=== PATIENT | female | born 1970 | race Caucasian/White ===

== ENCOUNTER → 2018-09-16 | Outpatient (CLI) | payer OTHER ==
[~2018-09-16] MED LIST: BUTA-234; BUTA1TAB55 PO; CYAN50003 PO; CYCL10TA45 PO; DIAZ-345; ERGO50006 PO; FLUO40CA PO; HCTZ12.5T PO; HYDR-3454 PO; HYDR25TA4 PO; IBUP-1780 PO; LEVO200T6 PO; LEVO25TA5 PO; LEVO500T2 PO; MELO-195 PO; METH10TA2 PO; METH4TAB PO; METH500T PO; PHEN37.555 PO; POTA10TA10 PO; TAPE50TA2 PO
--- NOTE | 2018-09-16 12:39 | Diagnostic Imaging Report ---
INDICATION: Routine screening. COMPARISON: No prior mammograms are available for comparison. TECHNIQUE: 2D and 3D bilateral screening mammography was performed with CAD. FINDINGS: Scattered fibroglandular densities are identified bilaterally. A circumscribed nodule in the upper outer left breast is noted, consistent with an intramammary lymph node. No spiculated mass or malignant appearing microcalcifications are identified. The axillae are unremarkable. IMPRESSION: No mammographic features suspicious for malignancy are identified. ACR BI-RADS Category 2: Benign findings. Result letter will be mailed to the patient. Note: At least 10% of breast cancer is not imaged by mammography. Dictated by: Dictated on workstation # [id number]
== END ==
LOC: RAD 07:41
PROVIDERS: ATTEND Nurse Practitioner Primary Care
DX: Z12.31 Encounter for screening mammogram for malignant neoplasm of breast (principal)
CPT/HCPCS: 77067

== ENCOUNTER → 2020-06-15 | Outpatient (CLI) | payer SELFPAY ==
[~2020-06-15] MED LIST changes: +CATHETER FLUSH 10 ML SYR IV PRN; +HOLD METFORMIN - RECEIVED CONTRAST 20 ML VIAL IV SCH; -HYDR-3454 PO; +HYDR-3455 PO; +IOHEXOL 350 MG/ML 100 ML (OMNIPAQUE 350) VIAL IV ONE; +NS 100 ML (IVPB) BAG IV ONE
--- NOTE | 2020-06-15 09:11 | Diagnostic Imaging Report ---
PROCEDURE: CT chest and abdomen with contrast. TECHNIQUE: Multiple contiguous axial images were obtained through the chest and abdomen after the administration of intravenous contrast. Auto Exposure Controls were utilized during the CT exam to meet ALARA standards for radiation dose reduction. INDICATION: Flank pain after gastric bypass surgery. COMPARISON: 02/10/2018. FINDINGS: There are no discrete pulmonary nodules, masses, or infiltrates. There is no pleural or pericardial effusion. There is no pneumothorax. The heart size is normal. There is no pathologically enlarged adenopathy in the chest. The thoracic aorta is normal in caliber and without evidence of dissection. The liver is normal in size without focal lesions. The gallbladder is surgically absent. The spleen is normal. The pancreas is unremarkable. The kidneys are normal in appearance. There is an upper midline anterior abdominal wall hernia containing omental fat. The bowel gas pattern is nonspecific. There is no free air. There is no ascites. There are no focal inflammatory changes. There are degenerative changes in the spine. IMPRESSION: Midline anterior abdominal wall hernia above the umbilicus containing only omental fat. No other acute cardiopulmonary abnormality. No acute abnormality in the abdomen. Dictated by: Dictated on workstation # [id number]
== END ==
LOC: RAD 07:17
PROVIDERS: ATTEND Nurse Practitioner Community Health
DX: K43.9 Ventral hernia without obstruction or gangrene (principal); Z90.49 Acquired absence of other specified parts of digestive tract; Z98.84 Bariatric surgery status
CPT/HCPCS: 71260; 74160

== ENCOUNTER 2022-09-12 13:02 | Emergency (ER) | payer SELFPAY ==
[~2022-09-12] VITALS: Ht 170 cm; Wt 131.0 kg
[~2022-09-12 13:02] MED LIST changes: -CATHETER FLUSH 10 ML SYR IV PRN; -HOLD METFORMIN - RECEIVED CONTRAST 20 ML VIAL IV SCH; -IOHEXOL 350 MG/ML 100 ML (OMNIPAQUE 350) VIAL IV ONE; +METH-742 PO; -METH10TA2 PO; -NS 100 ML (IVPB) BAG IV ONE
--- NOTE | 2022-09-12 13:07 | ED Hip Pain/Injury ---
General Chief Complaint: Trauma-Non Activation Stated Complaint: FALL Source: patient Exam Limitations: no limitations History of Present Illness Date Seen by Provider: Sep 12, 2022 Time Seen by Provider: 13:06 Initial Comments To ER by [facility] with reports of fall. She tripped going down the stairs when her left leg gave out on her. She landed on the left hip and now has severe left hip pain. History of fibromyalgia. Timing/Duration: this morning Severity: moderate Location: hip (L) Method of Injury: fell Associated Symptoms: denies symptoms Allergies and Home Medications Allergies Coded Allergies: shellfish derived (Verified Allergy, Mild, Hives, 09/22/21) Uncoded Allergies: seafood (Allergy, Mild, 05/16/09) Patient Home Medication List Home Medication List Reviewed: Yes Cyclobenzaprine Hcl (Flexeril Tablet) 10 Mg Tablet, 10 MG PO TID, (Reported) Entered as Reported by: ROHITH SALVADOR on 06/16/13 0439 Diazepam (Valium 5 Mg Tab) 5 Mg Tablet, (Reported) Entered as Reported by: TIARA MCARTHUR on 05/16/09 1415 Ergocalciferol (Vitamin D2) (Vitamin D2) 50,000 Unit Capsule, 50,000 UNIT PO WEEK, (Reported) Entered as Reported by: MARICEL KENNEDY on 03/05/16 1150 Fluoxetine Hcl (Fluoxetine Hcl) 40 Mg Capsule, 1 EACH PO BID, (Reported) Entered as Reported by: ROHITH SALVADOR on 06/16/13 0439 Hydrochlorothiazide (Hydrochlorothiazide) 25 Mg Tablet, 25 MG PO DAILY, (Reported) Entered as Reported by: MARICEL KENNEDY on 03/05/16 1150 Hydrocodone/Acetaminophen (Vicodin 5-300 mg Tablet) 1 Each Tablet, 1 EACH PO Q4H PRN for ABDOMINAL PAIN Prescribed by: JENNIFER LEIJA on 03/09/16 1050 Hydrocodone/Acetaminophen (Hydrocodone-Acetamin 7.5-325) 7.5 Mg-325 Mg Tablet, 1 EACH PO Q6H PRN for PAIN-SEVERE (8-10) Prescribed by: LOS HOGAN on 09/12/22 1343 Ibuprofen (Ibuprofen) 800 Mg Tablet, 800 MG PO Q8H, (Reported) Entered as Reported by: MARICEL KENNEDY on 03/05/16 1150 Levofloxacin (Levaquin) 500 Mg Tablet, 500 MG PO DAILY Prescribed by: MICHAEL AGUIRRE on 02/10/181809 Levothyroxine Sodium (Levothyroxine Sodium) 25 Mcg Tablet, 25 MCG PO DAILY, (Reported) Entered as Reported by: MARICEL KENNEDY on 03/05/16 115 Methadone HCl (Methadone HCl) 10 Mg Tablet, 10 MG PO TID, (Reported) Entered as Reported by: MARICEL KENNEDY on 03/05/16 115 Methocarbamol (Robaxin) 500 Mg Tablet, 500 MG PO QID Prescribed by: MICHAEL AGUIRRE on 02/10/181809 Methylprednisolone (Medrol) 4 Mg Tab.ds.pk, 4 MG PO UD Prescribed by: MICHAEL AGUIRRE on 02/10/181809 Potassium Chloride (Potassium Chloride) 10 Meq Tablet.er, 10 MEQ PO DAILY, (Reported) Entered as Reported by: MARICEL KENNEDY on 03/05/161149 Tapentadol HCl (Nucynta) 50 Mg Tablet, 50 MG PO Q6H Prescribed by: MICHAEL AGUIRRE on 02/10/181809 Review of Systems Constitutional: see HPI EENTM: see HPI Respiratory: no symptoms reported Cardiovascular: no symptoms reported Genitourinary: no symptoms reported Musculoskeletal: see HPI Skin: no symptoms reported Psychiatric/Neurological: No Symptoms Reported Past [id number]-[id number] Hx Seasonal Allergies Seasonal Allergies: No Past Medical History Surgeries: Yes (GASTRIC BYPASS) Abdominal, Breast, Gallbladder Respiratory: No Cardiac: Yes Hypertension Neurological: Yes ("STRESS SEIZURES" PER PT/PSEUDOSEIZURES) Reproductive Disorders: No Female Reproductive Disorders: Menstrual Problems [employer] History: Menopausal HIV/AIDS: No Gastrointestinal: Yes Gastroesophageal Reflux, Chronic Constipation, Hiatal Hernia, Gall Bladder Disease Musculoskeletal: Yes Degenerate Disk Disease, Arthritis, Fibromyalgia, Chronic Back Pain Endocrine: Yes (MORBID OBESTIY--S/P GASTRIC BYPASS; FORMER WEIGHT APPROX 600 LBS. ) Hypothyroidsim HEENT: Yes Loss of Vision: Bilateral Hearing Impairment: Hard of Hearing Cancer: No Psychosocial: Yes Pseudo Seizures, Anxiety, Depression Integumentary: No Blood Disorders: Yes (ANEMIA) Adverse Reaction/Blood Tranf: No (N/A) Family Medical History No Pertinent Family Hx Physical Exam Vital Signs Vital Signs - First Documented 09/12/22 13:02 Temp 36.3 Pulse 63 Resp 16 B/P (MAP) 134/95 (108) Pulse Ox 100 O2 Delivery Room Air Capillary Refill : Height, Weight, BMI Height: 5'7.00" Weight: 250lbs. 0oz. [id number]; 41.99 BMI Method:Stated General Appearance: No Apparent Distress, WD/WN Neck: Full Range of Motion, Normal Inspection Respiratory: Normal Breath Sounds, No Accessory Muscle Use, No Respiratory Distress Gastrointestinal: Normal Bowel Sounds, Non Tender, Soft Extremity: Normal Capillary Refill, Normal Inspection Neurologic/Psychiatric: Alert, Oriented x3 Skin: Normal Color, Warm/Dry Progress/Results/Core Measures Results/Orders My Orders Orders - LOS HOGAN APRN Hydrocodone/Apap 5/325 Tablet (Lortab 5 (09/12/22 13:15) Pelvis With Left Hip 2-3 Views (09/12/22 13:04) Ondansetron Oral Dissolve Tab (Zofran (09/12/22 13:10) Ct Pelvis Wo (09/12/22 13:47) Medications Given in ED Current Medications Medications Dose Ordered Sig/Newton Route Start Time Stop Time Status Last Admin Dose Admin Acetaminophen/ Hydrocodone Bitart 1 ea ONCE ONCE PO 09/12/22 13:15 09/12/22 13:16 DC 09/12/22 13:11 1 EA Ondansetron HCl 4 mg STK-MED ONCE .ROUTE 09/12/22 13:10 09/12/22 13:13 DC 09/12/22 13:15 4 MG Vital Signs/I&O 09/12/22 13:02 Temp 36.3 Pulse 63 Resp 16 B/P (MAP) 134/95 (108) Pulse Ox 100 O2 Delivery Room Air Departure Impression Primary Impression: Fracture of left superior pubic ramus Disposition: HOME, SELF-CARE Condition: Stable Departure-Patient Inst. Decision time for Depature: 13:07 Patient Instructions: Groin Strain, Pelvic Fracture Add. Discharge Instructions: 1. Walk with a walker. Follow-up with orthopedics. Pain medication as directed. Return to ER for any concerns All discharge instructions reviewed with patient and/or family. Voiced understanding. Scripts Hydrocodone/Acetaminophen (Hydrocodone-Acetamin 7.5-325) 7.5 Mg-325 Mg Tablet 1 EACH PO Q6H PRN for PAIN-SEVERE (8-10), #20 TAB Prov: LOS HOGAN APRN 09/12/22 Work/School Note: Work Release Form Date Seen in the Emergency Department: Sep 12, 2022 Return to Work: Sep 15, 2022 LOS HOGAN APRN Sep 12, 2022 13:07
[2022-09-12] MEDS ORDERED: ONDANSETRON 4 MG (ZOFRAN) ORAL DISSOLVE TAB ONE (13:10)
[2022-09-12] MEDS ORDERED: HYDROcodone/APAP 5 MG/325 MG (LORTAB) TAB PO ONE (13:15)
[2022-09-12] MEDS ORDERED: HYDR-3817 PO (13:43)
--- NOTE | 2022-09-12 13:44 | Diagnostic Imaging Report ---
CLINICAL INDICATION: Patient tripped and fell landing directly onto left hip. EXAM: X-ray of the pelvis, AP view, and x-ray of the left hip, AP and frog-leg views. COMPARISON: CT scan of the chest, abdomen, and pelvis dated 02/10/2018. FINDINGS AND IMPRESSION: 1: There is cortical thickening and irregularity involving the superior left pubic ramus and medial left pubic bone region, which may represent a fracture of unknown age. If there is no history of previous fracture in this region, then CT scan is suggested for further evaluation. 2: Otherwise, there is no acute fracture or dislocation. 3: There is mild degenerative disease of both hips. There is enthesopathy of the greater trochanter. 4: There is lower lumbar spine facet arthropathy. Dictated by: Dictated on workstation # [id number]
--- NOTE | 2022-09-12 14:31 | Diagnostic Imaging Report ---
INDICATION: Fall with pelvic pain. TECHNIQUE: Multiple contiguous axial images were obtained through the pelvis without the use of intravenous contrast. Sagittal and coronal reformations were performed. Auto Exposure Controls were utilized during the CT exam to meet ALARA standards for radiation dose reduction. COMPARISON: Comparison made to plain radiographs from the same day. FINDINGS: There are acute fractures of the medial portions of the left inferior and superior pubic rami. No other fractures are detected. There are facet degenerative changes in the lower lumbar spine. There is no dislocation. There is no soft tissue hematoma or mass. IMPRESSION: Acute fractures of the left inferior and superior pubic rami without significant displacement. Dictated by: Dictated on workstation # [id number]
[2022-09-12 15:05] VITALS: BP 141/86
== END 2022-09-12 15:09 | disposition home or self-care (01) ==
LOC: EDUNIT# 13:02 → ER 13:03
DX: S32.592A Other specified fracture of left pubis, initial encounter for closed fracture (principal); E66.01 Morbid (severe) obesity due to excess calories; Z68.41 Body mass index [BMI] 40.0-44.9, adult; Z87.39 Personal history of other diseases of the musculoskeletal system and connective tissue; Z28.310 Unvaccinated for COVID-19; W01.0XXA Fall on same level from slipping, tripping and stumbling without subsequent striking against object, initial encounter
CPT/HCPCS: 72192